=== PATIENT | male | born 1940 | race Caucasian/White ===

== ENCOUNTER 2017-08-09 06:33 | Inpatient (IN) | payer OTHER ==
[2017-07-27 15:03] LABS: APPEARANCE,URINE CLEAR; KETONES,URINE NEGATIVE (NEGATIVE); LEUKOCYTE ESTERASE ,URINE NEGATIVE (NEGATIVE); NITRITE,URINE NEGATIVE (NEGATIVE); PH,URINE 5 (4.5-8.0); PROTEIN,URINE NEGATIVE (NEGATIVE); UROBILINOGEN,URINE NORMAL MG/DL (0.0-1.0)
[2017-07-27 15:06] LABS: EOSINOPHILS % (AUTO) 1.2 % (0.0-3.0); LYMPHOCYTES % (AUTO) 21.2 % (20.0-45.0); MEAN CORPUSCULAR HEMOGLOBIN 30.8 PG (27.0-31.0); MEAN CORPUSCULAR HGB CONC 32.3 G/DL (32.0-36.0); MEAN CORPUSCULAR VOLUME 95 FL (80-99); MEAN PLATELET VOLUME 8.5 FL (6.5-10.1); MONOCYTES % (AUTO) 7.5 % (1.0-10.0); NEUTROPHILS % (AUTO) 69.1 % (45.0-75.0); PLATELET COUNT 246 K/UL (150-450); RED BLOOD COUNT 4.79 M/UL (4.70-6.10); RED CELL DISTRIBUTION WIDTH 11.2 % (11.6-14.8); WHITE BLOOD COUNT 6.7 K/UL (4.8-10.8)
[2017-07-27 15:18] LABS: ALANINE AMINOTRANSFERASE 29 U/L (12-78); ALBUMIN/GLOBULIN RATIO 1.2 (1.0-2.7); ANION GAP 11 mmol/L (5-15); ASPARTATE AMINO TRANSFERASE 20 U/L (15-37); CALCIUM 9.5 MG/DL (8.5-10.1); CARBON DIOXIDE 25 MMOL/L (21-32); CHLORIDE 103 MMOL/L (98-107); POTASSIUM 4.2 MMOL/L (3.5-5.1); SODIUM 139 MMOL/L (136-145); TOTAL PROTEIN 7.6 G/DL (6.4-8.2)
[2017-07-27 15:28] LABS: BACTERIA,URINE FEW /HPF; RBC,URINE 0-2 /HPF (0 - 0); WBC,URINE 0-2 /HPF (0 - 0)
[2017-07-27 15:30] LABS: INR 0.9 (0.9-1.1); PROTHROMBIN TIME 9.9 SEC (9.30-11.50)
--- NOTE | 2017-07-27 16:26 | Diagnostic Imaging Report ---
Indication: Cough Technique: 2 views of the chest Comparison: none. Findings: Lungs and pleural spaces are clear. Heart size is normal. Bones are unremarkable except for mild degenerative spondylosis. Impression: No acute process
[2017-08-09] VITALS (15 sets, daily range): BP systolic 119–148; BP diastolic 54–78
[~2017-08-09] VITALS: Ht 182.9 cm; Wt 117.9 kg
[~2017-08-09 06:33] MED LIST: ACETAMINOPHEN325 M1 ORAL
[2017-08-09] MEDS ORDERED: ceFAZolin sod 2 GM in D5W 110 ML IVPB ONE (07:00)
[2017-08-09] MEDS ORDERED: VOLTAREN GEL TOPIC (07:21)
[2017-08-09] MEDS ORDERED: IBUPROFEN600 MG ORAL (07:21)
--- NOTE | 2017-08-09 08:19 | Pre-Procedure Note/Attestation ---
Pre-Procedure Note/Attestation Complete Prior to Procedure Procedure Narrative: L3, 4, 5 laminectomy and facet cyst removal Indications for Procedure Pre-Operative Diagnosis: L3-5 stenosis/facet cyst Attestation I attest that I discussed the nature of the procedure; its benefits; risks and complications; and alternatives (and the risks and benefits of such alternatives ), prior to the procedure, with the patient (or the patient's legal sales representative printing paper). I attest that, if there was a reasonable possibility of needing a blood transfusion, the patient (or the patient's legal sales representative printing paper) was given the [facility] standardized written summary, pursuant to the [place] Blood Safety Act ([place] Health and Safety Code # 1645, as amended). I attest that I re-evaluated the patient just prior to the surgery and that there has been no change in the patient's H&P, except as documented below: MARIOLA BEAL Aug 09, 2017 08:19
--- NOTE | 2017-08-09 08:19 | Anethesia Preoperative Eval ---
Anesthesia Pre-op PMH/ROS General Date of Evaluation: Aug 09, 2017 Time of Evaluation: 08:13 Anesthesiologist: Lizabeth ASA Score: ASA 3 Mallampati Score Class I : Soft palate, uvula, fauces, pillars visible Class II: Soft palate, uvula, fauces visible Class III: Soft palate, base of uvula visible Class IV: Only hard plate visible Mallampati Classification: Class III Surgeon: Carlitos Diagnosis: Lumbar radiculopaty Surgical Procedure: L3-L4-L5 lamintmy wih decompression Anesthesia History: none Family History: no anesthesia problems Allergies: Coded Allergies: NAPROXEN (Verified Allergy, Intermediate, 08/08/17) DEVELOPAS BLOTYCHES IN ARMS CELECOXIB (Verified Adverse Reaction, Intermediate, 08/08/17) upset stomach Past Medical History Cardiovascular: Reports: HTN - mild, Denies: CAD, MO, valve dz, arrhythmia, other Pulmonary: Reports: BRIANNE, Denies: asthma, COPD, other Gastrointestinal/Genitourinary: Reports: GERD, Denies: CRI, ESRD, other Neurologic/Psychiatric: Reports: other - chronic pain, Denies: dementia, CVA, depression/anxiety, TIA Endocrine: Reports: DM - borderline, Denies: hypothyroidism, steroids, other HEENT: Denies: cataract (L), cataract (R), glaucoma, NENANA (L), NENANA (R), other Hematology/Immune: Denies: anemia, DVT, bleeding disorder, other Musculoskeletal/Integumentary: Reports: DJD, Denies: OA, RA, DDD, edema, other Other: obesity PMH Narrative: as above PSxH Narrative: Cervical spine, hernia repair, TURPr Anesthesia Pre-op Phys. Exam Physician Exam Last Vital Signs Date Time Temp Pulse Resp B/P (MAP) Pulse Ox O2 Delivery O2 Flow Rate FiO2 08/09/17 07:04 98.0 59 17 148/78 99 Room Air Constitutional: NAD Neurologic: CN 2-12 intact Cardiovascular: RRR, no M/R/G Respiratory: CTA Gastrointestinal: other - obesity Airway Exam Mallampati Score: Class III Neck: short ROM: limited Teeth: missing Dentures: no upper, no lower Anesthesia Pre-op A/P Labs see chart Studies Pre-op Studies: EKG - NSR Risk Assessment & Plan Assessment: ASA 3 Plan: GA with ETT prone position neuromonitoring Status Change Before Surgery: No Pre-Antibiotics Drug: Ancef 2 gr. Given Within 1 Hr of Incision: Yes Time Given: 08:56 KAYA BOWLES M.D. Aug 09, 2017 08:19
[2017-08-09] MEDS ORDERED: fentaNYL 100 mcg/2 mL IV ONE ×2 (08:21→08:30)
[2017-08-09] MEDS ORDERED: Glycopyrrolate 0.2mg/ml 1ml Vial ONE (08:21)
[2017-08-09] MEDS ORDERED: LR 1000ml ONE (08:21)
[2017-08-09] MEDS ORDERED: Neostigmine 1mg/ml 10ml Inj ONE (08:21)
[2017-08-09] MEDS ORDERED: Midazolam 2mg/2ml Inj ONE (08:21)
[2017-08-09] MEDS ORDERED: Succinylcholine 20mg/ml 10ml vial ONE (08:21)
[2017-08-09] MEDS ORDERED: Zemuron 50mg/5ml Inj IV ONE (08:21)
[2017-08-09] MEDS ORDERED: Propofol 1,000mg/ 100ml btl IV ONE ×2 (08:21→08:30)
[2017-08-09] MEDS ORDERED: ePHEDrine 50mg/ml Inj ONE (08:30)
[2017-08-09] MEDS ORDERED: Sodium Chloride 10ml vial INJ ONE (08:30)
[2017-08-09] MEDS ORDERED: NS Irrig 1000ml ONE (08:30)
[2017-08-09] MEDS ORDERED: Sterile Water Irrig 1000ml IRRIG ONE (08:30)
[2017-08-09] MEDS ORDERED: Ketorolac 30mg Inj ONE (08:30)
[2017-08-09] MEDS ORDERED: Lidocaine 1% MPF 10mg/ml 5ml ONE (08:30)
[2017-08-09] MEDS ORDERED: Atropine Sulfate 0.4mg/ml inj ONE (08:30)
[2017-08-09] MEDS ORDERED: Bacitracin 50000 Units Vial IRRIG ONE (09:22)
[2017-08-09] MEDS ORDERED: Thrombin 5000 units spray kit TOPIC ONE (09:22)
[2017-08-09] MEDS ORDERED: Bupivacaine 0.5% Inj 30 ml vial INJ ONE (09:22)
[2017-08-09] MEDS ORDERED: Gelfoam Absorbable 1gm powder pkt TOPIC ONE (09:22)
[2017-08-09] MEDS ORDERED: Thrombin 5000 units TOPIC ONE (09:22)
[2017-08-09] MEDS ORDERED: LR 1000ml 1,000 ML IVLG SCH (10:11)
[2017-08-09] MEDS ORDERED: DiphenhydrAMINE 50mg/ml Inj IVP PRN (10:15)
[2017-08-09] MEDS ORDERED: Midazolam 2mg/2ml Inj IVP PRN (10:15)
[2017-08-09] MEDS ORDERED: Hydromorphone 0.5mg/0.5ml inj IVP PRN (10:15)
[2017-08-09] MEDS ORDERED: Vancomycin 1gm inj IVPB ONE (10:55)
[2017-08-09] MEDS ORDERED: Acetaminophen (Non formulary) 100 ML IV ONE (11:00)
--- NOTE | 2017-08-09 11:05 | Brief Operative Note ---
Immediate Post Operative Note Operative Note Pre-op Diagnosis: L3-5 stenosis/facet cyst Procedure: L3, L4, Sup L5 laminectomy, removal of facet cyst Post-op Diagnosis: same as pre-op Findings: consistent w/pre-op dx studies Surgeon: karlee A Class Lineman: alejo kirkpatrick Anesthesiologist: julita Anesthesia: general Specimen: none Complications: none Condition: stable Fluids: 1200 Estimated Blood Loss: volume - 100 Drains: hemovac Implant(s) used?: MARIOLA Oconnor Aug 09, 2017 11:05
[2017-08-09] MEDS ORDERED: traMADol 50mg tab ORAL PRN (11:15)
[2017-08-09] MEDS ORDERED: Metoclopramide 10mg/2ml Inj IVP PRN (11:15)
[2017-08-09] MEDS ORDERED: Milk of Magnesia 30ml Ud ORAL PRN (11:15)
[2017-08-09] MEDS ORDERED: HYDROmorphone 1mg/ml Carpuject SUBQ PRN (11:15)
[2017-08-09] MEDS ORDERED: Norco 7.5mg/325mg tab ORAL PRN ×2 (11:15)
[2017-08-09] MEDS ORDERED: Naloxone 0.4mg/ml Inj IVP PRN (11:15)
--- NOTE | 2017-08-09 13:20 | Immediate Post-Op Evaluation ---
Immediate Post-Op Evalulation Immediate Post-Op Evalulation Procedure: L3-L4 L4-L5 bilateral laminotomy with decompression Date of Evaluation: Aug 09, 2017 Time of Evaluation: 11:45 IV Fluids: 1200 Blood Products: none Estimated Blood Loss: 100 Urinary Output: `150 Blood Pressure Systolic: 136 Blood Pressure Diastolic: 72 Pulse Rate: 68 Respiratory Rate: 20 O2 Sat by Pulse Oximetry: 99 Temperature (Fahrenheit): 98.3 Pain Score (1-10): 2 Nausea: No Vomiting: No Complications none Patient Status: reacts, patent, extubated, none Hydration Status: adequate KAYA BOWLES M.D. Aug 09, 2017 13:20
[2017-08-09] MEDS: D5 1/2NS 1,000 ML IV SCH ×2 (15:35→23:16)
--- NOTE | 2017-08-09 15:45 | Operative Note - Dictated ---
DATE OF OPERATION: 08/09/2017 PREOPERATIVE DIAGNOSES: 1. Spinal stenosis, L3-L4 and L4-L5. 2. Facet cyst on left side, L4-L5. 3. Marked adhesions. POSTOPERATIVE DIAGNOSES: 1. Spinal stenosis, L3-L4 and L4-L5. 2. Facet cyst on left side, L4-L5. 3. Marked adhesions. PROCEDURES: 1. Subtotal laminectomy inferior 2/3 of L3, complete laminectomy L4, and partial superior one half laminectomy L5. 2. Lysis of adhesions. 3. Resection of facet cyst. 4. Use of operating microscope. 5. Foraminotomies, L4, L5, and S1 bilaterally. 6. Neurodiagnostic monitoring. SURGEON: Arik Urbina M.D. KNOCKOUT MACHINE OPERATOR: Alex Vail PA-C. ANESTHESIOLOGIST: Pb Barone M.D. ANESTHESIA TYPE: General endotracheal anesthesia. ESTIMATED BLOOD LOSS: 100 mL. IV FLUIDS: 1200 mL. COMPLICATIONS: None. FINDINGS: Marked adhesions extending from mid portion of L3 down to L5 bilaterally, more on the left due to chronic facet cyst. INDICATIONS: The patient is a very pleasant 76-year-old with progressively worsening back and leg pain secondary to spinal stenosis. He had had multiple epidurals in the past with reasonable improvement, however, at this point, the pain can no longer be controlled with conservative means. Due to his progressive neurologic symptoms, surgical intervention was recommended. The patient elected to proceed. RISK NOTE: The patient was explained in detail the risks and benefits of surgery to include, but not be limited to those of bleeding, infection, damage to nerves, vessels, tendons, anesthetic risk, allergic reaction, aspiration, and possibly . The patient elected to proceed. OPERATIVE PROCEDURE IN DETAIL: The patient was taken to the operative suite after positive identification was made. He was intubated. General endotracheal anesthesia was induced. Marie catheter was then placed. Peripheral lines were then started. The patient was turned prone onto a Sharad frame. All bony prominences were well padded. The fluoroscope was brought in place and localization at L3, L4, and L5 was verified. At this point, the skin was infiltrated using lidocaine with epinephrine. A midline incision was carried out from L3 through L5. Subperiosteal dissection was carried out bilaterally. Self-retaining retractors were put into place. At this point, high-speed drill was used to perform a hemilaminotomy of the leading edge of L3 on the left side. It was then immediately noted that the leading edge of L4 was completely scarred into place and it would be deemed dangerous to perform bilateral keyhole foraminotomy; therefore, it was elected to perform a complete midline laminectomy. The spinous process of L4 was completely resected. The inferior one half spinous process of L3 was resected. The interspinous ligament was remained intact at the L2-L3 level. The superior one half of the spinous process of L5 was also resected. At this point, under microscopic visualization, thinning out of the lamina was performed from the inferior two thirds of the lamina of L3, complete L4, and superior one half of L5. High-speed drill was used to thin out the bone and lamina all throughout up to the edge of the facet bilaterally. At this point, with use of Kerrison punch, the remnants of the bone were then all removed as well as the ligamentum flavum decompressing the dural sac. Please note that there were marked adhesions due to the presence of the facet cyst on the left side and therefore, meticulous microneurolysis was performed mobilizing the facet cyst off of the dural sac all the way into the lateral recess at L4-L5. Copious irrigation was performed. Once the central canal was decompressed as well as the neural foramen bilaterally at L3-L4 and L4-L5, copious irrigation was performed. Meticulous hemostasis was achieved. The microscope was removed. Decision was made to close due to the patient's body habitus. A medium-sized Hemovac drain was placed deep to the fascia. Please also add that 1 gram of powdered vancomycin was also applied both below and above the fascial layer. Fascia was repaired using #1 Vicryl. Subcutaneous closure using 2-0 Vicryl. Dermabond and sterile dressing was applied. At this time, the patient was awaiting extubation. Please note that sponge and needle counts were remained intact throughout the procedure. Neurodiagnostic monitoring remained stable throughout diminished bilaterally. Arik Urbina M.D. DR: Toby JOB#: [id number] CC:
[2017-08-09] MEDS: ceFAZolin sod 1 GM in D5W 55 ML IV SCH (17:46)
[2017-08-09] MEDS: Pericolace tab ORAL SCH (17:53)
[2017-08-09] MEDS: Docusate 100mg cap ORAL SCH (17:53)
[2017-08-09] MEDS ORDERED: Chloraseptic Spray 20mL Bottle ORAL PRN (20:30)
[2017-08-09] MEDS: Morphine Sulfate 4mg/ml Inj IVP PRN (23:14)
[2017-08-10] VITALS: BP_SYST 112; BP_SYST 129; BP_DIAS 55; BP_DIAS 73
[2017-08-10] MEDS: ceFAZolin sod 1 GM in D5W 55 ML IV SCH ×2 (02:18→09:11)
--- NOTE | 2017-08-10 02:45 | Consultation ---
DATE OF CONSULTATION: 08/09/2017 REFERRING PHYSICIAN: Arik Urbina M.D. REASON FOR CONSULTATION: Acute pain consult. HISTORY OF PRESENT ILLNESS: Dear Dr. Arik Urbina, Thank you kindly for consulting me to evaluate and render an opinion as to how to proceed in the management of the patient's acute postoperative lumbar spine pain after multiple level lumbar spine surgery by Dr. Arik Urbina today. The patient is a 76-year-old gentleman, who sustained a work-related injury to his lumbar spine. He required multiple level lumbar spine surgery today and he complained of significant discomfort postoperatively. You consulted me for acute pain consultation. I saw the patient at bedside where I performed a detailed history and physical examination. I spent over 75 minutes in consultation with an additional 30 minutes in medical record review. I reviewed multiple records from today's date of surgery at [facility] including multiple records from the surgery area including consent for surgical treatment, consent for anesthesia, consent for blood products, medication administration record, medication reconciliation order form, PACU record, PACU orders, anesthesia record, pre and post anesthesia evaluation record, postoperative spine surgery orders and postoperative surgery report by Dr. Urbina, intraoperative nursing record, 24-hour medical/surgical flow sheet, and initial nursing assessment. Further record review include preoperative history and physical by Dr. Tolentino, 07/27/2017 along with diagnostic studies including 12-lead EKG, chest x-ray, and laboratory report. PAST MEDICAL HISTORY: 1. Acute postoperative lumbar spine pain, status post multiple level lumbar spine surgery by Dr. Arik Urbina in July 2017. 2. Work-related injury. 3. Obesity. PAST SURGICAL HISTORY: Neck surgery 2005, bilateral carpal tunnel surgery, and right knee arthroscopy. MEDICATIONS: At home, Voltaren cream, Tylenol, Advil, and CBD oil b.i.d. ALLERGIES: No known drug allergies. SOCIAL HISTORY: The patient lives alone. He quit tobacco over 60 years ago. He denies alcohol usage. REVIEW OF SYSTEMS: Per Dr. Tolentino. PHYSICAL EXAMINATION: GENERAL: Age 76, height 6 feet 0 inch, weight 262 pounds, and body mass index 35. VITAL SIGNS: Afebrile, pulse 77, respirations 20, blood pressure 131/74, and oxygen saturation 100% on supplemental oxygen. HEENT: Normocephalic and atraumatic. CHEST: Clear to auscultation. HEART: Regular rate and rhythm. ABDOMEN: Obese. Positive bowel sounds. No rebound or guarding. GENITOURINARY: Deferred. The patient is currently voiding urine into a urinal. BACK: Lumbar spine exam shows dressing clean and dry with Hemovac drain holding suction. Significant discomfort with range of motion moving in and out of bed. EXTREMITIES: A 5/5 dorsiflexion and 5/5 plantar flexion in bilateral lower extremities. DIAGNOSTIC TESTING: A 12-lead EKG July 2017 shows first-degree AV block, left axis deviation. Preoperative chest x-ray shows no acute cardiopulmonary disease on 07/27/2017. LABORATORY STUDIES: On 07/27/2017 shows white count 7, hematocrit 46, and platelets 246,000. Sodium 139, potassium 4.3, chloride 103, bicarbonate 25, BUN 13, creatinine 1.0, glucose 114, and calcium 9.5. Total bilirubin 0.5. AST 20 and ALT 29. Total protein 7.6. Albumin 4.1. Alkaline phosphatase 35. INR 0.9. PTT 26. Urinalysis negative. IMPRESSION: 1. Acute postoperative lumbar spine pain, status post multiple level lumbar spine surgery by Dr. Arik Urbina in July 2017. 2. Work-related injury. 3. Obesity. TREATMENT RECOMMENDATIONS: I have devised the following analgesic plan to help with this patient's pain control postoperatively. The patient uses CBD oil b.i.d. I did offer Marinol dosing here in the hospital, which contains THC; but the patient has requested to defer at this time. In the past after his neck surgery, he has tolerated Tylenol No. 3 with Codeine without any difficulties. I will order one tablet orally every 4 hours p.r.n. for mild pain. I have also ordered a breakthrough dose of morphine 2 mg IV every two hours p.r.n. for severe pain episodes. The patient denies usage of muscle relaxants. I have streamlined his medication list to reduce the risk of medication administration errors. With his age, I have ordered Protonix for GI ulcer prophylaxis. I have ordered Benadryl 20 mg q.6 h. p.r.n. in case of any itching complaints. I have ordered Zofran 4 mg intravenously p.r.n. for nausea symptoms. I will order incentive spirometer to encourage good pulmonary toilet. He will be placed on a stool softener, Colace b.i.d. to help with bowel regularity and I have ordered p.r.n. dose of milk of magnesia as a rescue laxative. The patient has been placed on sequential compression pneumatic devices for DVT prophylaxis. Andrea Patel M.D. DR: Adela JOB#: [id number] CC:
[2017-08-10] MEDS: Morphine Sulfate 4mg/ml Inj IVP PRN (03:04)
[2017-08-10 04:00] VITALS: BP 149/72
--- NOTE | 2017-08-10 07:11 | 48 Hour Post Anesthesia Eval ---
Post Anesthesia Evaluation Procedure: L3-L4 L4-L5 bilateral laminotomy with decompression Date of Evaluation: Aug 10, 2017 Time of Evaluation: 06:23 Blood Pressure Systolic: 149 0: 72 Pulse Rate: 79 Respiratory Rate: 20 Temperature (Fahrenheit): 98.2 O2 Sat by Pulse Oximetry: 95 Airway: patent Nausea: No Vomiting: No Pain Intensity: 3 Hydration Status: adequate Cardiopulmonary Status: Stable Mental Status/LOC: patient returned to baseline Follow-up Care/Observations: 0 Post-Anesthesia Complications: 0 Follow-up care needed: N/A Bishop Atkins MD Aug 10, 2017 07:11
[2017-08-10] MEDS: Tylenol #3 tab (300mg/30mg) ORAL PRN ×3 (07:55→20:40)
[2017-08-10 08:00] VITALS: BP 146/69
--- NOTE | 2017-08-10 08:41 | Orthopedic Spine Progress Note ---
Ortho Spine - Progress Note Subjective Symptoms: c/o post-op back pain, improved - as compared to pre-op Objective Vital Signs: Last 24 Hour Vital Signs Date Time Temp Pulse Resp B/P (MAP) Pulse Ox O2 Delivery O2 Flow Rate FiO2 08/10/17 07:11 79 20 95 08/10/17 04:00 98.3 79 20 149/72 95 08/10/17 00:00 97.8 82 19 129/55 100 08/09/17 20:00 98.3 69 19 128/60 96 08/09/17 16:00 Nasal Cannula 2.0 08/09/17 15:55 98.0 77 20 131/74 100 08/09/17 15:00 Nasal Cannula 2.0 08/09/17 14:45 97.9 66 19 119/56 96 08/09/17 14:12 98.2 20 124/58 98 08/09/17 14:00 Nasal Cannula 2.0 08/09/17 13:20 68 20 99 08/09/17 13:19 97.8 68 20 126/54 97 08/09/17 12:43 98.0 64 17 130/57 100 Nasal Cannula 3.0 08/09/17 12:34 98.0 08/09/17 12:30 73 19 129/60 99 Nasal Cannula 3.0 08/09/17 12:15 75 20 128/59 99 Nasal Cannula 3.0 08/09/17 12:10 70 18 125/55 99 Nasal Cannula 3.0 08/09/17 12:00 76 19 129/54 100 Simple Mask 6.0 08/09/17 11:55 78 22 126/55 100 Simple Mask 6.0 08/09/17 11:50 77 16 126/55 99 Simple Mask 6.0 08/09/17 11:45 72 14 131/56 99 Simple Mask 6.0 08/09/17 11:40 98.3 68 12 135/66 98 Simple Mask 6.0 Wound: clean, intact Drains: hemovac Neuro Status: stable Assessment Procedure Performed: L3, L4, Sup L5 laminectomy, removal of facet cyst Plan Plan: PT, pain management, continue drain MARIOLA BEAL Aug 10, 2017 08:41
[2017-08-10] MEDS: Pericolace tab ORAL SCH ×2 (09:11→18:31)
[2017-08-10] MEDS: Docusate 100mg cap ORAL SCH ×2 (09:11→18:32)
[2017-08-10] MEDS: D5 1/2NS 1,000 ML IV SCH ×2 (09:12→20:00)
--- NOTE | 2017-08-10 10:30 | Diagnostic Imaging Report ---
Indication: PAIN lower extremity tingling and pain Technique: Intraoperative localizer image Comparison: Findings: Single lateral image demonstrates a surgical tool projected posteriorly to what is presumably the L4 vertebral body Impression: Intraoperative imaging, as described
[2017-08-10 12:00] VITALS: BP 127/68
[2017-08-10 16:00] VITALS: BP 133/69
--- NOTE | 2017-08-10 19:15 | Progress Note ---
DATE: 08/10/2017 ACUTE PAIN MANAGEMENT PHYSICIAN PROGRESS NOTE MEDICATIONS: Medication administration record reviewed. Medications include Mirta-Colace, Chloraseptic, Protonix, Zofran, Narcan, morphine, milk of magnesia, Colace, Benadryl, Catapres, Mylanta, Tylenol No. 3 with Codeine. LABORATORY STUDIES: No interval laboratory studies. PHYSICAL EXAMINATION: VITAL SIGNS: Afebrile, pulse 78, respirations 20, blood pressure 146/69, and oxygen saturation 98% on room air. I saw the patient at bedside. I discussed the case with the nurse RNHali with the surgeon, Dr. Urbina. The patient is alert and oriented x3. He has been voiding urine well. He is able to move in and out of bed with assistance and has been ambulating with physical therapy. The Hemovac output overnight was greater than 70 mL. The surgeon, Dr. Urbina evaluated the patient earlier this morning and recommended to continue the indwelling lumbar spine drain catheter in place for now. We will check the output for the next 24 hours to determine if the catheter can be removed tomorrow. The patient's appetite is good. He has been tolerating the Tylenol No. 3 with Codeine with good analgesic effect. He also has been using the morphine without any adverse side effects. I did leave the patient a prescription for Tylenol No. 3 with Codeine for outpatient usage and the hospital staff is working with the nearby outpatient pharmacy to dispense his medications for the patient. The patient denies any shortness of breath or chest pain. The patient has a good appetite without any nausea symptoms. We will continue with supportive care at this time. Andrea Patel M.D. DR: SHIRLEY JOB#: [id number] CC:
[2017-08-10 20:00] VITALS: BP 128/71
[2017-08-11] VITALS: BP 144/70
[2017-08-11 04:00] VITALS: BP 128/66
[2017-08-11] MEDS: Tylenol #3 tab (300mg/30mg) ORAL PRN (05:56)
[2017-08-11] MEDS: D5 1/2NS 1,000 ML IV SCH (06:00)
[2017-08-11 08:00] VITALS: BP 127/55
[2017-08-11] MEDS: Docusate 100mg cap ORAL SCH (09:01)
[2017-08-11] MEDS: Pericolace tab ORAL SCH (09:01)
--- NOTE | 2017-08-11 09:06 | Orthopedic Spine Progress Note ---
Ortho Spine - Progress Note Subjective Symptoms: c/o post-op back pain, improved - as compared to pre-op Objective Vital Signs: Last 24 Hour Vital Signs Date Time Temp Pulse Resp B/P (MAP) Pulse Ox O2 Delivery O2 Flow Rate FiO2 08/11/17 08:00 98.0 96 20 127/55 96 08/11/17 04:00 98.4 71 20 128/66 95 Room Air 08/11/17 00:00 97.8 71 20 144/70 99 Room Air 2.0 08/10/17 20:00 98.6 77 18 128/71 98 Room Air 08/10/17 16:00 98.1 71 19 133/69 98 Room Air 08/10/17 12:00 98.2 71 19 127/68 96 Room Air I&O: Intake and Output 08/11/17 08/12/17 19:00 07:00 Intake Total 340 ml Balance 340 ml Intake Oral 340 ml # Voids 1 Wound: clean, intact Drains: none Neuro Status: stable Assessment Procedure Performed: L3, L4, Sup L5 laminectomy, removal of facet cyst Plan Plan: PT, pain management, d/c drain, discharge plan MARIOLA BEAL Aug 11, 2017 09:06
--- NOTE | 2017-08-11 09:15 | Progress Note ---
DATE: 08/11/2017 ACUTE PAIN MANAGEMENT PHYSICIAN PROGRESS NOTE MEDICATIONS: Medication administration record reviewed. Medications include Colace, Mirta-Colace, Protonix, and Narcan. PRN medications include Tylenol, milk of magnesia, Tylenol No. 3 with Codeine, Benadryl, Chloraseptic, Catapres, morphine, Mylanta, Zofran, and Dulcolax. LABORATORY STUDIES: No interval laboratory studies. OBJECTIVE: VITAL SIGNS: Within normal limits. Afebrile. Pulse 71, respirations 20, blood pressure 128/66, and oxygen saturation is 95% on room air. I saw the patient at the bedside with the nurse RN, Flaquita. I spoke with the overnight nurse RN, Beti along with the surgeon, Dr. Arik Urbina. The patient continues to be very ambulatory. He is able to move around the room and hallways with assistance. He is voiding urine well. He is alert and oriented x3. He denies any shortness of breath or chest pain. His appetite is vigorous and he has been requesting multiple laxatives to help with his chronic constipation. The patient has been alternating pain relief using the Tylenol No. 3 with Codeine pills primarily, with using a breakthrough morphine when needed. The patient is working with the outpatient pharmacy to get a supply of outpatient pain pills. The output from the indwelling lumbar spine drain catheter overnight had decreased considerably. With the patient in the standing position, being held by the certified first assistant, I examined the lumbar spine wound. Dressing was removed showing the incision line clean and dry with no evidence for erythema or exudate. The drain hole site was clean and dry. With the Hemovac drain taken off of suction, and at the end-expiration, I personally removed the indwelling lumbar spine drain catheter. The tip was intact. Alcohol swabbing was applied generously to the drain hole site and incision line. An island border gauze dressing was then applied to the drain hole site and incision area without any complications. Andrea Patel M.D. DR: GINA JOB#: [id number] CC:
[2017-08-11 11:50] VITALS: BP 135/67
[2017-08-11] MEDS ORDERED: ACETAMINOPHEN-1 EAC1 ORAL (13:10)
[2017-08-11] MEDS ORDERED: D5 1/2NS 1000ml IV ONE (13:27)
[2017-08-11] MEDS ORDERED: Tubing IV Secondary IV ONE (13:28)
[2017-08-11] MEDS ORDERED: Morphine Sulfate 2mg/ml Inj IVP PRN (13:30)
--- NOTE | 2017-08-12 12:47 | Discharge Summary ---
Discharge Summary Hospital Course Date of Admission Aug 09, 2017 at 06:33 Date of Discharge Aug 11, 2017 at 14:50 Admitting Diagnosis HPI Vivek Gonzalez is a 76 year old male who was admitted on Aug 09, 2017 at 06:33 for Spondylosis Hospital Course [id number] Discharge Discharge Disposition Patient was discharged to Home (01) Discharge Diagnoses: Cassie Rahman NP Aug 12, 2017 12:47
--- NOTE | 2017-08-12 21:01 | Discharge Summary 2 SIG ---
DATE OF ADMISSION: 08/09/2017 DATE OF DISCHARGE: 08/11/2017 CERTIFIED ORTHOTIST PRACTICE MANAGER: Andrea Patel M.D. BRIEF HOSPITAL COURSE: The patient is a 76-year-old male with ongoing work injury that started in 2005. 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 In the course of his regular duties, the patient injured various parts of his body including his legs, back, and his wrist. He had progressively worsening back and leg pain, secondary to spinal stenosis. He had multiple epidurals in the past with reasonable improvement, however, at this point, pain can no longer be controlled with conservative means. Due to his progressive neurologic symptoms, surgical intervention was recommended. He was admitted on 08/09/2017 and underwent a subtotal laminectomy on the inferior 2/3 of L3, complete laminectomy L4, and partial superior 1/[address] Urbina. Postoperatively, he was seen by pain management and was given Tylenol No. 3. He was placed on SCDs for DVT prophylaxis and had been ambulating well with physical therapy and voiding well. He had an indwelling lumbar spine drain catheter postoperative. On 08/11/2017, drain was removed and he was discharged home with good pain control. He was ambulatory and voiding well. He was given laxatives to help with his chronic constipation. He was discharged home to follow up with Surgery as outpatient. FINAL DIAGNOSES: Spinal stenosis at L3-4 and L4-5 with facet cyst on the left side L4-L5, status post subtotal laminectomy inferior 2/3 of L3, complete laminectomy L4 and partial superior 1/2 laminectomy on L5 (refer to operative report). DISCHARGE DISPOSITION: The patient was discharged home. DISCHARGE MEDICATIONS: Continue with Tylenol No. 3 one tablet q.4 hours p.r.n. pain. Arik Urbina M.D. I have been assigned to dictate discharge summary on this account and I was not involved in the patient's management. Cassie Rahman N.P. DR: ETHEL JOB#: [id number] CC: JOURDAN
== END 2017-08-11 14:50 | disposition home or self-care (01) | DRG 520 ==
LOC: SDSOVERFLO 06:33 → 3E 12:50 → SDSOVERFLO 08-11 14:12 → 3E 08-11 14:13
PROC: 4A11X4G Monitoring of Peripheral Nervous Electrical Activity, Intraoperative, External Approach (ICD-10-PCS; 2017-08-09)
PROC: 00NY0ZZ Release Lumbar Spinal Cord, Open Approach (ICD-10-PCS; principal; 2017-08-09 08:30)
DX: M48.061 Spinal stenosis, lumbar region without neurogenic claudication (principal); I10 Essential (primary) hypertension; E66.9 Obesity, unspecified; G89.18 Other acute postprocedural pain; K59.00 Constipation, unspecified; M85.68 Other cyst of bone, other site; G47.33 Obstructive sleep apnea (adult) (pediatric); K21.9 Gastro-esophageal reflux disease without esophagitis; M19.90 Unspecified osteoarthritis, unspecified site; R73.03 Prediabetes; Z68.35 Body mass index [BMI] 35.0-35.9, adult; Z87.891 Personal history of nicotine dependence; Z60.2 Problems related to living alone; Z87.828 Personal history of other (healed) physical injury and trauma
CPT/HCPCS: 36415; 71020; 72020; 76001; 80053; 81001; 85025; 85610; 85730; 86850; 86900; 86901; 87081; 87086; 94003; 94150; C9399; J2250; J2710